=== PATIENT | male | born 1990 | race Two or more races ===

== ENCOUNTER 2025-02-27 14:09 | Emergency (ER) | payer OTHER ==
[~2025-02-27] VITALS: Ht 182.9 cm; Wt 67.1 kg
[2025-02-27] MEDS ORDERED: BENADRYL25 MG PO ×2 (14:29→17:40)
[2025-02-27] MEDS ORDERED: METHYLPREDNISOLONE SOD SUCC 125 MG in 0.9 % SODIUM CHLORIDE 100 ML IV STA (15:08)
[2025-02-27] MEDS ORDERED: DIPHENHYDRAMINE HCL 50 MG in 0.9 % SODIUM CHLORIDE 50 ML IV STA (15:08)
[2025-02-27] MEDS ORDERED: DIPHENHYDRAMINE HCL 50 MG/ML VIAL 1ML ONE (15:31)
[2025-02-27] MEDS ORDERED: METHYLPREDNISOLONE SOD SUCC 125 MG VIAL ONE (15:32)
[2025-02-27 16:32] LABS: HEMATOCRIT 40.4 % (39.0-48.0); HEMOGLOBIN 13.5 g/dL (13-16.00); MEAN CELL VOLUME 76.5 fL (80.0-100.00); MEAN CORPUSCULAR HEMOGLOBIN 25.6 pg (27.00-32.0); MEAN CORPUSCULAR HGB CONC 33.4 g/dl (32.0-36.0); PLATELET COUNT 358 K/uL (150-450); RED BLOOD COUNT 5.29 M/uL (4.00-6.00); RED CELL DISTRIBUTION WIDTH 13.4 % (11.5-14.5)
[2025-02-27 16:59] LABS: ALBUMIN 3.6 gm/dL (3.4-5.0); BILIRUBIN TOTAL 0.45 mg/dL (0.3-1.2); CALCIUM 9.2 mg/dL (8.5-10.1); CREATININE SERUM 0.51 mg/dL (0.70-1.30); GFR 184.95; GLOBULINA 3.3 G/DL (2.4-3.5); POTASSIUM 4.09 mEq/L (3.5-5.1); TOTAL PROTEIN 6.9 gm/dL (6.4-8.2)
[2025-02-27] MEDS ORDERED: ZYRTEC10 M3 PO (17:40)
[2025-02-27] MEDS ORDERED: MEDROLPACK PO (17:40)
== END 2025-02-27 18:26 | disposition home or self-care (01) ==
LOC: ER 14:09
PROVIDERS: General Practice
DX: T78.40XA Allergy, unspecified, initial encounter (principal)